=== PATIENT | female | born 1980 | race African-American/Black ===

== ENCOUNTER 2019-09-22 18:20 | Emergency (ER) | payer BC, OTHER ==
[2019-09-22 18:29] VITALS: BP 141/101
--- NOTE | 2019-09-22 18:54 | ER Document Report ---
HPI - HPI Time Seen by Provider: 09/22/19 18:26 Notes: 39 yr old female presents today with complaints of left foot pain x 5 days ago while pressure washing her house. states that she accidentally hit her let foot with the trench pipe layer. reports pain is 1/5, only with palpation on her left f oot. Able to bear full weight. Patient states her tetanus is up-to-date. Has not tried any [id number] medications. MEDICATIONS: I agree with the patient medications as charted by the RN. ALLERGIES: I agree with the allergies as charted by the RN. PAST MEDICAL HISTORY/PAST SURGICAL HISTORY: Reviewed and agree as charted by RN. SOCIAL HISTORY: Reviewed and agree as charted by RN. FAMILY HISTORY: No significant familial comorbid conditions directly related to patient complaint EXAM: Reviewed vital signs as charted by RN. REVIEW OF SYSTEMS:reviewed vital signs by RN CONSTITUTIONAL : Denies fever, chills, or sweats. Denies recent illness. EENT: Denies eye, ear, throat, or mouth pain or symptoms. Denies nasal or sinus congestion or discharge. Denies throat, tongue, or mouth swelling or difficulty swallowing. CARDIOVASCULAR: Denies chest pain. Denies palpitations or racing or irregular heart beat. Denies ankle edema. RESPIRATORY: Denies cough, cold, or chest congestion. Denies shortness of breath, difficulty breathing, or wheezing. GASTROINTESTINAL: Denies abdominal pain or distention. Denies nausea, vomiting, or diarrhea. Denies blood in vomitus, stools, or per rectum. Denies black, tarry stools. Denies constipation. GENITOURINARY: Denies difficulty urinating, painful urination, burning, frequency, blood in urine, or discharge. FEMALE GENITOURINARY: Denies vaginal bleeding, heavy or abnormal periods, irregular periods. Denies vaginal discharge or odor. MUSCULOSKELETAL: Denies back or neck pain or stiffness. Denies joint pain or swelling. SKIN: let foot pain. aspect. Denies rash, lesions or sores. HEMATOLOGIC : Denies easy bruising or bleeding. LYMPHATIC: Denies swollen, enlarged glands. NEUROLOGICAL: Denies confusion or altered mental status. Denies passing out or loss of consciousness. Denies dizziness or lightheadedness. Denies headache. Denies weakness or paralysis or loss of use of either side. Denies problems with gait or speech. Denies sensory loss, numbness, or tingling. Denies seizures. PSYCHIATRIC: Denies anxiety or stress. Denies depression, suicidal ideation, or homicidal ideation. ALL OTHER SYSTEMS REVIEWED AND NEGATIVE. PHYSICAL EXAMINATION: GENERAL: Well-appearing, well-nourished and in no acute distress. HEAD: Atraumatic, normocephalic. EYES: Pupils equal round and reactive to light, extraocular movements intact, conjunctiva are normal. ENT: Nares patent, oropharynx clear without exudates. Moist mucous membranes. NECK: Normal range of motion, supple without lymphadenopathy LUNGS: Breath sounds clear to auscultation bilaterally and equal. No wheezes rales or rhonchi. HEART: Regular rate and rhythm without murmurs ABDOMEN: Soft, nontender, nondistended abdomen. No guarding, no rebound. No masses appreciated. Female : deferred Musculoskeletal: Normal range of motion, no pitting or edema. No cyanosis. NEUROLOGICAL: Cranial nerves grossly intact. Normal speech, normal gait. Normal sensory, motor exams PSYCH: Normal mood, normal affect. SKIN: left foot with a puncture wound to anterior aspect of foot. left foot with STS and tenderness on 2nd and 3rd metatarsal bones with palpation. Unable to palpate a step-off. No open lesions. squeeze test negative. dtr +2 BLE. Limited APROM. distal pulses + 2 in BUE. full motor and sensory function. No vascular compromise. Ankle exam within normal limits. No noted lacerations, lesions, ulcers or break in the skin. Warm, Dry, normal turgor, no rashes or lesions noted. Dictation was performed using [employer] voice recognition software Past Medical History - General Information source: Patient - Social History Smoking Status: Unknown if Ever Smoked Family History: Reviewed & Not Pertinent Vertical Provider Document - CONSTITUTIONAL Agree With Documented VS: Yes Exam Limitations: No Limitations General Appearance: WD/WN - INFECTION CONTROL TRAVEL OUTSIDE OF THE [place] IN LAST 30 DAYS: No Course - Re-evaluation Re-evalutation: 09/22/19 19:30 Afebrile vital stable no distress.Patient presents with symptoms most consistent with an acute cellulitis. Vitals within normal limits. Patient does not meet sepsis criteria is overall very well in appearance. Exam and history are not consistent with DVT. Patient will be started on coverage for both staph and strep. X-ray negative for any acute fracture dislocation or foreign body. No crepitus noted. Very superficial puncture wound to foot. at this time will discharge with return precautions and follow-up recommendations. Verbal discharge instructions given a the bedside and opportunity for questions given. Medication warnings reviewed. Patient is in agreement with this plan and has verbalized understanding of return precautions and the need for primary care follow-up in the next 24-72 hours. - Vital Signs Vital signs: Temp Pulse Resp BP Pulse Ox 98.7 F 88 12 141/101 H 100 09/22/19 18:26 09/22/19 18:26 09/22/19 18:26 09/22/19 18:26 09/22/19 18:26 Discharge - Discharge Clinical Impression: Left foot pain, Cellulitis of left foot Condition: Stable Disposition: HOME, SELF-CARE Instructions: Cellulitis ([facility]) Additional Instructions: Your x-ray was negative for any fracture, dislocation or foreign body. We are going to start you on oral antibiotic therapy to treat for superficial cellulitis. Please make sure you take your antibiotics with food. Make sure he apply heat 20 minutes on 20 minutes off several times a day. Return immediately for any new or worsening symptoms. Follow up with primary care provider, call tomorrow to make followup appoi ntment.CELLULITIS: DOXYCYCLINE: Doxycycline (Vibramycin, Doryx) is an antibiotic of the tetracycline family. This type of drug is useful for infections of the respiratory tract and genital tract, and is sometimes used for intestinal infections. Unlike most tetracyclines, doxycycline can be taken with food. It is longer acting, and (usually) less prone to side effects than regular tetracycline. Tetracycline antibiotics can stain immature teeth and SHOULD NOT BE TAKEN BY CHILDREN, NURSING MOTHERS, OR WOMEN. Tetracyclines can make you more prone to sunburn. Abdominal cramping, nausea, and diarrhea are occasional side effects. Women may experience vaginal yeast infections. Call the doctor at once if you develop hives, itching, shortness of breath, or lightheadedness. FOLLOW-UP CARE: If you have been referred to a physician for follow-up care, call the physicians office for an appointment as you were instructed or within the next two days. If you experience worsening or a significant change in your symptoms, notify the physician immediately or return to the Emergency Department at any time for re-evaluation. Prescriptions: Doxycycline Monohydrate 100 mg PO BID #20 tablet Referrals: NEREYDA FLETCHER PA-C [Primary Care Provider] - Follow up as needed (in 1-2 days for wound recheck ) LEXY CHAUDHRY DPM [ACTIVE STAFF] - Follow up as needed
--- NOTE | 2019-09-22 19:08 | RADIOLOGY REPORT (SQ) ---
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 NUMBER OF VIEWS: Three views. TECHNIQUE: AP, lateral and oblique radiographic images acquired of the left foot. LIMITATIONS: None. FINDINGS: MINERALIZATION: Normal. BONES: No fracture dislocation. Plantar and posterior calcaneal spurs. JOINTS: No effusions. SOFT TISSUES: No soft tissue swelling. No foreign body. OTHER: No other significant finding. IMPRESSION: Calcaneal spurs. No acute finding. TECHNICAL DOCUMENTATION: JOB ID: [id number] 2010 [employer]- All Rights Reserved Reading location - IP/workstation name: [email or web address]
[2019-09-22] MEDS ORDERED: DOXYCYCLINE HYCLATE 100 MG TABLET PO ONE (19:42)
== END 2019-09-22 19:42 | disposition home or self-care (01) ==
LOC: ER 18:20
DX: L03.116 Cellulitis of left lower limb (principal); S91.332A Puncture wound without foreign body, left foot, initial encounter; W22.8XXA Striking against or struck by other objects, initial encounter; Y93.H9 Activity, other involving exterior property and land maintenance, building and construction; Y92.009 Unspecified place in unspecified non-institutional (private) residence as the place of occurrence of the external cause; M77.32 Calcaneal spur, left foot
CPT/HCPCS: 99283

== ENCOUNTER 2019-11-21 17:02 | Emergency (ER) | payer OTHER ==
[2019-11-21 17:09] VITALS: BP 142/86
--- NOTE | 2019-11-21 17:33 | ER Document Report ---
HPI - HPI Patient complains to provider of: Left ankle pain Time Seen by Provider: 11/21/19 17:16 Onset: This morning Onset/Duration: Gradual Quality of pain: Achy Pain Level: 3 Context: Patient states she woke up today with left ankle pain and swelling. Patient noted mild erythema to the anterior ankle area. No fever. Associated Symptoms: denies: Fever Exacerbated by: Movement Relieved by: Other - Cale wrap Similar symptoms previously: Yes Recently seen / treated by doctor: No - ROS ROS below otherwise negative: Yes Systems Reviewed and Negative: Yes All other systems reviewed and negative - CONSTITUTIONAL Constitutional: DENIES: Fever, Chills - GASTROINTESTINAL Gastrointestinal: DENIES: Nausea - REPRODUCTIVE Reproductive: DENIES: : - MUSCULOSKELETAL Musculoskeletal: REPORTS: Extremity pain, Swelling - DERM Skin Color: Normal, Erythema Past Medical History - General Information source: Patient - Social History Smoking Status: Never Smoker Frequency of alcohol use: None Drug Abuse: None 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 IN LAST 30 DAYS: No - HEENT HEENT: Atraumatic, Normocephalic - NECK Neck: Normal Inspection - RESPIRATORY Respiratory: Breath Sounds Normal, No Respiratory Distress - CARDIOVASCULAR Cardiovascular: Regular Rate, Regular Rhythm Pulses: Normal: Dorsalis pedis - MUSCULOSKELETAL/EXTREMETIES Musculoskeletal/Extremeties: MAEW, Tender - Tenderness to anterior aspect of left ankle with overlying area of mild erythema, no calor, patient does have lesion that look suspicious for insect bite adjacent to the areas of erythema - NEURO Level of Consciousness: Awake, Alert, Appropriate Motor/Sensory: No Motor Deficit - DERM Integumentary: Warm, Dry Notes: Erythema to anterior aspect of left ankle surrounding lesion that looks suspicious for insect bite Course - Re-evaluation Re-evalutation: 11/21/19 17:34 Patient with erythema to anterior aspect of the ankle suspicious for early developing cellulitis, area is not tender to palpation, no concern for gout, septic arthritis, or DVT at this time, patient denies any history of trauma. Will refer to primary doctor for follow-up. - Vital Signs Vital signs: Temp Pulse Resp BP Pulse Ox 98.1 F 88 18 142/86 H 100 11/21/19 17:06 11/21/19 17:06 11/21/19 17:06 11/21/19 17:06 11/21/19 17:06 Discharge - Discharge Clinical Impression: Cellulitis Qualifiers: Site of cellulitis: extremity Site of cellulitis of extremity: lower extremity Laterality: left Qualified Code(s): L03.116 - Cellulitis of left lower limb Condition: Stable Disposition: HOME, SELF-CARE Instructions: Cellulitis ([facility]), Cephalexin ([facility]) Additional Instructions: Return immediately for any new or worsening symptoms Followup with your primary care provider, call tomorrow to make a followup appointment Prescriptions: Cephalexin Monohydrate [Keflex 500 mg Capsule] 500 mg PO Q6H 5 Days #20 capsule Naproxen [Naprosyn 250 Nmg Tablet] 1 tab PO BID #14 tablet Hydrocodone/Acetaminophen [W[place] 5-325 mg Tablet] 1 tab PO Q6 PRN #6 tablet PRN Reason: Forms: Return to Work Referrals: LATONYA AYALA PA-C [Primary Care Provider] - Follow up as needed
== END 2019-11-21 17:35 | disposition home or self-care (01) ==
LOC: ER 17:02
DX: L03.116 Cellulitis of left lower limb (principal); M25.572 Pain in left ankle and joints of left foot; M25.472 Effusion, left ankle; E78.00 Pure hypercholesterolemia, unspecified
CPT/HCPCS: 99283